=== PATIENT | male | born 2000 | race Caucasian/White ===

== ENCOUNTER 2020-09-15 06:45 | Outpatient (CLI) | payer OTHER ==
[2020-09-15 12:01] LABS: #Basophils 0.1 10x3/uL (0.0-0.2); #Eosinphils 0.1 10x3/uL (0.0-0.5); #Monocytes 0.5 10x3/uL (0.0-1.1); #Neutrophils 3.2 10x3/uL (1.5-8.4); %Eosinophils 2.1 % (0.0-6.0); %Lymphocytes 36.4 % (18.0-47.0); %Monocytes 8.1 % (0.0-10.0); %Neutrophils 52.1 % (40.0-75.0); Hemoglobin 13.3 g/dL (14.0-18.0); Mean Corpuscular HGB CONC 33.3 G/DL (32.0-36.0); Mean Corpuscular Hemoglobin 30.1 PG (27.0-33.0); Mean Corpuscular Volume 90.3 fl (80.0-100.0); Platelet Count 359 10x3/uL (130-400); RBC Distribution Width 12.5 % (11.5-14.5); Red Blood Cell (RBC) Count 4.42 10x6/uL (4.40-5.80); White Blood Cell (WBC) Count 6.2 10x3/uL (4.5-11.0)
[2020-09-15 12:20] LABS: Anion Gap 13 mmol/L (10-20); BUN (Urea Nitrogen) 24 mg/dL (8.9-20.6); Calc. Creatinine Clearance 0 mL/min (70-130); Calcium 9.1 mg/dL (7.8-10.44); Carbon Dioxide 27 mmol/L (22-29); Chloride 105 mmol/L (98-107); Estimated GFR-MDRD 88; Glucose 92 mg/dL (70-105); Potassium 4.1 mmol/L (3.5-5.1); Sodium 141 mmol/L (136-145)
[2020-09-15 19:09] LABS: SARS-CoV-2 MS2 Positive; SARS-CoV-2 N Gene Negative; SARS-CoV-2 S Gene Negative; SARS-CoV-2 by NAA Not Detected (NotDetected); SARS-CoV-2 orf1ab Negative
== END 2020-09-15 06:46 | disposition home or self-care (01) ==
LOC: LABBT 06:45
PROVIDERS: ATTEND Specialist
DX: Z01.812 Encounter for preprocedural laboratory examination (principal); L05.92 Pilonidal sinus without abscess; Z20.828 Contact with and (suspected) exposure to other viral communicable diseases
CPT/HCPCS: 80048; 85025; 87635; U0003

== ENCOUNTER 2020-09-20 09:54 | Day surgery (SDC) | payer OTHER ==
[2020-09-17 12:50] VITALS: BMI 26.6
[2020-09-20] MEDS ORDERED: Fentanyl 100 MCG/2 ML VIAL ONE (10:12)
[2020-09-20] MEDS ORDERED: Ketorolac Tromethamine 30 MG/ML VIAL ONE (10:26)
[2020-09-20] MEDS ORDERED: Acetaminophen 500 MG TAB ONE (10:26)
[2020-09-20] MEDS ORDERED: Dexamethasone 20 MG/5 ML VIAL ONE (10:35)
[2020-09-20] MEDS ORDERED: Glycopyrrolate 0.2 MG/ML 5 ML SYRINGE ONE (10:35)
[2020-09-20] MEDS ORDERED: Rocuronium Bromide 10 MG/ML (10ML VIAL) ONE (10:35)
[2020-09-20] MEDS ORDERED: PROPOFOL 200 MG/20 ML VIAL ONE (10:35)
[2020-09-20] MEDS ORDERED: Lidocaine 1% PF 5 ML VIAL ONE (10:35)
[2020-09-20] MEDS ORDERED: PHENYLEPHRINE-NS 100 MCG/ML 10 ML SYRINGE ONE (10:35)
[2020-09-20] MEDS ORDERED: Ondansetron PF 4 MG/2 ML Vial ONE (10:35)
[2020-09-20] MEDS ORDERED: Midazolam HCl 2 mg/2 ml Vial ONE (11:54)
[2020-09-20] MEDS ORDERED: Bupivacaine PF 0.5% 30 ML VIAL ONE (12:59)
[2020-09-20] MEDS ORDERED: Lidocaine 1% w/Epinephrine 1:100K 20 ML VIAL ONE (12:59)
[2020-09-20] MEDS ORDERED: Methylene Blue 50 MG/10 ML AMPUL ONE (13:08)
[2020-09-20] MEDS ORDERED: Bacitracin Zinc Ointment 30 gm TUBE ONE (13:40)
[2020-09-20] MEDS ORDERED: Meperidine HCl/PF 25 MG/ML VIAL ONE (14:28)
--- NOTE | 2020-09-21 12:57 | OP ---
DATE OF PROCEDURE: 09/20/2020 PREOPERATIVE DIAGNOSES: Pilonidal disease with pilonidal cyst. POSTOPERATIVE DIAGNOSES: Pilonidal disease with pilonidal cyst. PROCEDURE PERFORMED: Complex pilonidal excision with flap elevation and layered closure. ANESTHESIA: General endotracheal. INDICATIONS: The patient is a 20-year-old white male. He had presented with a draining pilonidal lesion and a typical sacrococcygeal lesion to the right of midline. He had a communicating pilonidal pits in the midline. Since I initially evaluated him, the external lesion had completely closed. This had been present for about a year. He was taken to the operating room for definitive excision. DESCRIPTION OF OPERATION: Informed consent was obtained, the patient was taken to the operating room, where general anesthesia obtained, the patient in supine position. He was then rolled over into prone felicita-knife position. Buttocks were trimmed of hair, taped apart, prepped with Betadine, draped in sterile fashion. I attempted to cannulate the pilonidal pits and flushed with peroxide with methylene blue. The pits did not seem to be amenable to cannulation. I therefore created an elliptical incision around the pits and the external pilonidal opening to the right of midline. Local anesthetic was infiltrated using 0.25% Marcaine with epinephrine. Dissection was carried deeply using sharp dissection electrocautery. Dissection was carried down to the fascia and the specimen was removed intact and passed off the field. I excised additional skin edges from both sides to allow for better closure. Meticulous hemostasis obtained within the wound. There was no evidence of granulation or other tissue within the wound. Flaps were raised sharply on both sides. The flaps were then approximated with interrupted sutures of 2-0 Vicryl to include the underlying fascia to close the space. The more superficial layers were closed with interrupted sutures of 3-0 Vicryl. Finally, skin edges were approximated with interrupted vertical mattress sutures of 2-0 nylon. Blood loss was negligible. The patient tolerated the procedure well. Antibiotic ointment and dry gauze dress were applied. There were no complications. The patient tolerated the procedure well and was taken to recovery room in stable condition. Job ID: [id number]
== END 2020-09-20 16:45 | disposition home or self-care (01) ==
LOC: SDC 09:54
PROVIDERS: ATTEND Specialist
PROC: 0JB90ZZ Excision of Buttock Subcutaneous Tissue and Fascia, Open Approach (ICD-10-PCS; principal; 2020-09-20)
DX: L05.92 Pilonidal sinus without abscess (principal); J30.2 Other seasonal allergic rhinitis
CPT/HCPCS: 88304; J0690; J1100; J1885; J2175; J2250; J2405; J2704; J3010; Q9968; S0020